=== PATIENT | female | born 1980 | race American Indian/Alaskan Native ===

== ENCOUNTER 2017-01-09 20:39 | Emergency (ER) | payer MEDICAID ==
[2017-01-09 22:06] LABS: Basophils % (Auto) 0.4 % (0.0-1.8); Eosinophils % (Auto) 0.8 % (0.0-4.3); Hemoglobin 14.6 gm/dl (10.1-14.3); Mean Corpuscular HGB Conc 34 % (30-34); Mean Corpuscular Hemoglobin 28 pg (28-32); Mean Corpuscular Volume 83 fl (79-97); Platelet Count 265 K/mm3 (140-440); Red Blood Count 5.16 M/mm3 (3.65-5.03); Red Cell Distribution Width 12.8 % (13.2-15.2); White Blood Count 10.2 K/mm3 (4.5-11.0)
[2017-01-09 22:20] LABS: Bilirubin,Urine NEG (Negative); Blood,Urine NEG (Negative); Ketones,Urine NEG (Negative); Leukocyte Esterase,Urine NEG (Negative); Mucus,Urine FEW /HPF; Nitrite,Urine NEG (Negative); Protein,Urine <15 mg/dL mg/dL (Negative); Urobilinogen,Urine < 2.0 mg/dL (<2.0); WBC,Urine < 1.0 /HPF (0.0-6.0)
[2017-01-09 22:30] LABS: Alanine Aminotransferase 9 units/L (7-56); Albumin/Globulin Ratio 1.2 %; Alkaline Phosphatase 70 units/L (35-129); Anion Gap 17 mmol/L; BUN/Creatinine Ratio 12.22; Bilirubin,Total 0.2 mg/dL (0.1-1.2); Blood Urea Nitrogen 11 mg/dL (7-17); Calcium 8.9 mg/dL (8.4-10.2); Carbon Dioxide 22 mmol/L (22-30); Chloride 100.1 mmol/L (98-107); Glucose 99 mg/dL (65-100); Lipase 31 units/L (13-60); Potassium 4.2 mmol/L (3.6-5.0); Sodium 135 mmol/L (137-145); Total Protein 7.4 g/dL (6.3-8.2)
[2017-01-10] MEDS ORDERED: TYLENOL ONE (00:32)
[2017-01-10] MEDS ORDERED: TYLENOL PO ONE (00:35)
[2017-01-10 01:47] VITALS: BP 107/72
--- NOTE | 2017-01-10 14:27 | ED Elopement Review ---
ED Pt Elopement review - Results review Lab results: Laboratory Tests 01/09/17 01/09/17 01/09/17 21:56 21:56 21:56 WBC 10.2 RBC 5.16 H Hgb 14.6 H Hct 43.0 H MCV 83 MCH 28 MCHC 34 RDW 12.8 L Plt Count 265 Lymph % (Auto) 14.2 [place] % (Auto) 5.5 Eos % (Auto) 0.8 Baso % (Auto) 0.4 Lymph # 1.4 [place] # 0.6 Eos # 0.1 Baso # 0.0 Seg Neutrophils % 79.1 H Seg Neutrophils # 8.1 H Sodium 135 L Potassium 4.2 Chloride 100.1 Carbon Dioxide 22 Anion Gap 17 BUN 11 Creatinine 0.9 Estimated GFR > 60 BUN/Creatinine Ratio 12.22 Glucose 99 Calcium 8.9 Total Bilirubin 0.2 AST 14 ALT 9 Alkaline Phosphatase 70 Total Protein 7.4 Albumin 4.0 Albumin/Globulin Ratio 1.2 Lipase 31 HCG, Qual Negative Urine Color Urine Turbidity Urine pH Ur Specific [place] Urine Protein Urine Glucose (UA) Urine Ketones Urine Blood Urine Nitrite Urine Bilirubin Urine Urobilinogen Ur Leukocyte Esterase Urine WBC (Auto) Urine RBC (Auto) U Epithel Cells (Auto) Urine Mucus 01/09/17 22:00 WBC RBC Hgb Hct MCV MCH MCHC RDW Plt Count Lymph % (Auto) [place] % (Auto) Eos % (Auto) Baso % (Auto) Lymph # [place] # Eos # Baso # Seg Neutrophils % Seg Neutrophils # Sodium Potassium Chloride Carbon Dioxide Anion Gap BUN Creatinine Estimated GFR BUN/Creatinine Ratio Glucose Calcium Total Bilirubin AST ALT Alkaline Phosphatase Total Protein Albumin Albumin/Globulin Ratio Lipase HCG, Qual Urine Color Yellow Urine Turbidity Clear Urine pH 6.0 Ur Specific [place] 1.015 Urine Protein <15 mg/dl Urine Glucose (UA) Neg Urine Ketones Neg Urine Blood Neg Urine Nitrite Neg Urine Bilirubin Neg Urine Urobilinogen < 2.0 Ur Leukocyte Esterase Neg Urine WBC (Auto) < 1.0 Urine RBC (Auto) 2.0 U Epithel Cells (Auto) 2.0 Urine Mucus Few - Call Back decision Pt Call Back Decision: Pt to F/U with PMD
== END 2017-01-10 06:08 | disposition left against medical advice (07) ==
LOC: ED 20:39
DX: R10.32 Left lower quadrant pain (principal); Z53.21 Procedure and treatment not carried out due to patient leaving prior to being seen by health care provider
CPT/HCPCS: 36415; 80053; 81001; 83690; 84703; 85025

== ENCOUNTER 2019-08-18 05:57 | Day surgery (SDC) | payer MEDICAID ==
[~2019-08-18 05:57] MED LIST: BUPIVACAINE/PF (0.5%) 5 MG/1 ML 30 ML VIAL INFILTRATI ONE
--- NOTE | 2019-08-18 07:11 | Short Stay Summary ---
Short Stay Documentation Date of service: 08/18/19 Narrative H&P: Pt is a 39yo BF LMP 08/04/19 presents for surgical evaluation and treatment of a left ovarian mass. Pelvic u/s showed the uterus 7.1 x 4.7 x 5.5cm with a left adnexal tubular structure that measures up to 9.8cm. She complains of pelvic pain and is therefore scheduled for a Laparoscopic left salpingectomy, possible left ovarian cystectomy. - History Principal diagnosis: Left ovarian mass H&P: obtained from office Past Medical History: No medical history Past Surgical History: No surgical history Social history: no significant social history, - Allergies and Medications Current Medications: Allergies No Known Allergies Allergy (Verified 08/14/19 10:10) Home Medications Medication Instructions Recorded Confirmed Last Taken Type No Known Home Medications [No 08/14/19 08/14/19 Unknown History Reported Home Medications] - Physical exam General appearance: no acute distress Integumentary: no rash HEENT: Atraumatic Lungs: Clear to auscultation Breasts: deferred Heart: Regular rate Gastrointestinal: normal Female Genitourinary: deferred Rectal Exam: deferred Extremities: no ischemia, No edema Neurological: Normal gait, Normal speech - Brief post op/procedure progress note Date of procedure: 08/18/19 Pre-op diagnosis: 1. Pelvic pain 2. Left adnexal mass Post-op diagnosis: same (with Left Ovarian cyst) Procedure: Laparoscopic left ovarian cystectomy Anesthesia: GETA Findings: A normal uterus with normal fallopian tubes bilaterally. A normal right ovary with a large multicystic left ovarian mass suspicious for a Dermoid cyst. Surgeon: MELECIO WALDRON Estimated blood loss: minimal Pathology: list (Left ovarian cyst) Specimen disposition: to lab Condition: stable - Hospital course Hospital course: Unremarkable. - Disposition Condition at discharge: Good Disposition: DC-01 TO HOME OR SELFCARE - Discharge Diagnoses (1) Left ovarian cyst Status: Resolved (2) Dermoid cyst Status: Resolved Short Stay Discharge Plan Activity: no restrictions Diet: regular Wound: open to air, keep clean and dry Follow up with: MELECIO WALDRON MD [Staff Physician] - [address] GHAZALA SANCHEZ MD [Primary Care Provider] - 14 Days Prescriptions: HYDROcodone/APAP 5-325 [[place] 5/325] 1 each PO Q6HR PRN #20 tablet PRN Reason: Pain
--- NOTE | 2019-08-18 07:18 | Anesthesia Day of Surgery ---
Anesthesia Day of Surgery - Day of Surgery Patient Examined: Yes Patient H&P Reviewed: Yes Patient is NPO: Yes
--- NOTE | 2019-08-18 07:24 | Anesthesia Consultation ---
Anesthesia Consult and Med Hx Date of service: 08/18/19 - Airway Anesthetic Teeth Evaluation: Good ROM Head & Neck: Adequate Mental/Hyoid Distance: Adequate Mallampati Class: Class II Intubation Access Assessment: Probably Good - Pre-Operative Health Status ASA Pre-Surgery Classification: ASA1 Proposed Anesthetic Plan: General - Central Nervous System Hx Neuromuscular Disorder: Yes (Migraines) Hx Psychiatric Problems: No - Hematic Hx Sickle Cell Disease: Yes (Trait only) - Other Systems Hx Alcohol Use: Yes (Occas) Hx Cancer: No
[2019-08-18 07:26] LABS: Hematocrit 41.9 % (30.3-42.9); Hemoglobin 14.3 gm/dl (10.1-14.3)
[2019-08-18] MEDS ORDERED: ONDANSETRON 4 MG/2 ML INJ IV PRN (07:30)
[2019-08-18] MEDS ORDERED: ROCURONIUM 50 MG/5 ML INJ IV ONE (07:31)
[2019-08-18] MEDS ORDERED: LIDOCAINE MPF (2%) 20 MG/1 ML VIAL 5 ML ONE (07:31)
[2019-08-18] MEDS ORDERED: MIDAZOLAM 2 MG/2 ML INJ ONE (07:33)
[2019-08-18] MEDS ORDERED: fentaNYL 100 MCG/2 ML INJ ONE (07:33)
[2019-08-18] MEDS ORDERED: PROPOFOL 200 MG/20 ML VIAL IV ONE (07:34)
[2019-08-18] MEDS ORDERED: GABAPENTIN 300 MG CAP PO NR (08:00)
[2019-08-18] MEDS ORDERED: ACETAMINOPHEN 500 MG TAB PO NR (08:00)
[2019-08-18] MEDS ORDERED: LACTATED RINGERS 1,000 ML IV SCH (08:00)
[2019-08-18] MEDS ORDERED: fentaNYL 100 MCG/2 ML INJ IV PRN (08:00)
[2019-08-18] MEDS ORDERED: ceFAZolin/Water 2 GM/20 ML 2 GM/20 ML SYRINGE IV NR (08:00)
[2019-08-18] MEDS ORDERED: CELECOXIB 200 MG CAP PO NR (08:00)
[2019-08-18] MEDS ORDERED: KETOROLAC 30 MG/1 ML INJ ONE (08:44)
[2019-08-18] MEDS ORDERED: ONDANSETRON 4 MG/2 ML INJ ONE (08:44)
[2019-08-18] MEDS ORDERED: NEOSTIGMINE 10MG/10 ML INJ MDV ONE (08:44)
[2019-08-18] MEDS ORDERED: dexAMETHasone 20 MG/5 ML VIAL ONE (08:44)
[2019-08-18] MEDS ORDERED: GLYCOPYRROLATE 0.4 MG/2 ML INJ ONE (08:44)
[2019-08-18] MEDS ORDERED: BUPIVACAINE/PF (0.5%) 5 MG/1 ML 30 ML VIAL INFILTRATI ONE (09:10)
--- NOTE | 2019-08-18 09:43 | Operative Report ---
Operative Report Operative Report: Date of procedure: 08/18/2019 Pre-operative diagnosis: 1. Pelvic pain 2. Persistent left adnexal mass Post-operative diagnosis: Same with Left ovarian cyst Procedure name(s): Laparoscopic left ovarian cystectomy Surgeon: Dr. Alexander Quigley Torch Solderer: None Anesthesia: Gen. endotracheal intubation EBL: Minimal less than 10mls Findings: A normal uterus with normal fallopian tubes bilaterally. A normal right ovary with a large multicystic left ovarian mass suspicious for a Dermoid cyst. Procedure: After the patient was correctly identified, she was prepped and draped in the usual sterile fashion and placed in the dorsolithotomy position. Next the bladder was emptied using a straight catheter, and the speculum was placed in the vaginal vault. The anterior lip of the cervix was grasped using single-tooth tenaculum, and the uterine manipulator was then placed. The tenaculum and speculum were then removed. Attention was then turned to the abdomen where a periumbilical incision was made using the skin knife, and the Optiview trocar was inserted under direct visualization. After adequate amount of abdominal insufflation, visualization of the pelvic organs found the uterus to be normal, with normal fallopian tubes bilaterally. The left ovary was enlarged and multicystic. A suprapubic and a left lateral incision was made through which 5 mm trochars were placed in order to aid in manipulation of the pelvic organs. The left ovarian mass was dissected from the normal looking part of the ovary using both sharp and blunt dissection. The left uteroovarian ligament was grasped, cauterized and cut using the Tripolar cautery, until the multicystic mass was released from the left ovary. The multicystic mass was placed in an Endopouch and was drained of approximately 50mls of thick yellow fluid which was sent to cytology. The sac was removed in the Endopouch and sent to pathology. Copious amounts of irrigation was performed. The ovarian cystectomy site was made hemostatic using cauterization, and excellent hemostasis was achieved. The Tisseel Sealant was sprayed across the cystectomy site and excellent hemostasis was assured. At this point the procedure was considered complete. All instruments were removed from the abdomen. The abdomen was deflated, and the periumbilical incision was closed using 0 Vicryl suture in a [id number] configuration on the fascia followed by 4-O Monocryl suture in a sub-cuticular fashion on the skin. The suprapubic and left lateral incisions were closed in similar fashion. Each incision was infiltrated using 0.5% Marcaine Solution. The uterine manipulator was removed. The patient tolerated the procedure well and was transferred to recovery in stable condition.
[2019-08-18 10:26] VITALS: BP 119/90
--- NOTE | 2019-08-18 13:48 | Post Anesthesia Evaluation ---
- Post Anesthesia Evaluation Patient Participated: Yes Airway Patent: Yes Stable Respiratory Function: Yes Nausea/Vomiting: No Temp > 96.8F: Yes Pain Manageable: Yes Adequeate Hydration: Yes Anesthesia Complications: No Block Receding Appropriately: Not Applicable Patient on Ventilator: No
== END 2019-08-18 10:56 | disposition home or self-care (01) ==
LOC: OR 05:57
PROVIDERS: ATTEND Obstetrics & Gynecology
DX: R10.2 Pelvic and perineal pain (principal); R19.09 Other intra-abdominal and pelvic swelling, mass and lump; N83.202 Unspecified ovarian cyst, left side; D36.9 Benign neoplasm, unspecified site; G43.909 Migraine, unspecified, not intractable, without status migrainosus; Z79.899 Other long term (current) drug therapy; Z72.89 Other problems related to lifestyle; Z98.890 Other specified postprocedural states
CPT/HCPCS: 36415; 58662; 81025; 85014; 85018; 88112; 88305; 88311; C9250; J0690; J1100; J1885; J2250; J2405; J2704; J2710; J3010; J7120

== ENCOUNTER 2021-05-05 11:10 | Outpatient (CLI) | payer MEDICAID ==
--- NOTE | 2021-05-08 10:00 | Mammography Report ---
DIGITAL SCREENING MAMMOGRAM WITH TOMOSYNTHESIS WITH CAD, 05/08/2021 CLINICAL INFORMATION / INDICATION: Routine Screening Mammography. TECHNIQUE: Digital bilateral 2D and 3D mammography with tomosynthesis was obtained in the craniocaud al and mediolateral oblique projections. Computer-Aided Detection (CAD) analysis was used for interp retation of this study. COMPARISON: Baseline mammogram FINDINGS: Breast Density: There are scattered areas of fibroglandular density. No dominant mass, suspicious calcifications, or architectural distortion in either breast. IMPRESSION: No mammographic evidence of malignancy. Follow up recommendation: Routine yearly BI-RADS Category 1: Negative. A "normal" or negative report should not discourage follow up or biopsy of a clinically significant f inding. A written summary of these findings will be mailed to the patient. The patient will be entered into a mammography reporting system which will generate a reminder letter for the patient's next appointmen t at the appropriate interval. The [employer] recommends yearly mammograms starting at age 40 and continuing as l adamaris as a woman is in good health. Breast MRI is recommended for women with an approximate 20-25% or greater lifetime risk of breast cancer, including women with a strong family history of breast or ova candice cancer or who have been treated for Hodgkin's disease. Signer Name: Mimi Hill MD Signed: 05/08/2021 9:56 AM Workstation Name: [id number]
== END 2021-05-05 11:11 | disposition home or self-care (01) ==
LOC: SPVWC 11:10
PROVIDERS: ATTEND Advanced Practice Midwife
DX: Z12.31 Encounter for screening mammogram for malignant neoplasm of breast (principal); Z80.3 Family history of malignant neoplasm of breast
CPT/HCPCS: 77063; 77067